=== PATIENT | female | born 1935 | race African-American/Black ===

== ENCOUNTER 2016-09-04 22:53 | Inpatient (IN) | payer OTHER ==
--- NOTE | ~2016-09-04 | HP ---
History And Physical [facility] [address] [place]. [address] NAME: ORQUIDEA MARQUEZ : 33 STATUS : ADM [place] PAT#: [id number] AGE: 81 ADM/REG DATE : 09/04/16 MR#: [id number] REPORT SERV DATE: 09/05/16 DICTATED BY: CIRILO RAMIREZ DATE: 09/05/16 REPORT STATUS : Draft TRANSCRIBED BY: MODL DATE: 09/05/16 DATE OF ADMISSION: 09/04/2016 CHIEF COMPLAINT: Abdominal pain, nausea, and vomiting. HISTORY OF PRESENT ILLNESS: This is an 81-year-old female who has a history of prior laparotomies, history of hypothyroidism, essential hypertension, and a hiatal hernia, who presents to the emergency room at [facility] with the above- mentioned complaint. History is obtained from Mrs. Marquez and her family, who is at bedside. Her data available on the [employer] system here was also reviewed. According to Mrs. Marquez, she had been in the usual state of health until two days ago when she started having abdominal pain. The pain was periumbilical and according to her radiated to the back. Her pain was sharp and continuous without any aggravating or relieving factors. This was also associated with nausea with vomiting although she says she vomited only one time today; however, her pain continued to worsen to the point she decided to come to the emergency room to be evaluated. In the emergency room, her pain was relieved with intravenous administration of narcotic, however, CT of the abdomen and pelvis showed abnormal mucosal thickening and mesenteric edema concerning for ischemia. She also had urinary tract infection and Hospitalist Service is asked to admit her for further evaluation and treatment. At the time of my evaluation, she denied any chest pain, palpitations, or orthopnea. She had no cough, hemoptysis, night sweats, or weight loss. She has not had any recent falls or loss of consciousness. No history of fevers, chills. She did have nausea and vomiting, but no history of diarrhea. No history of hematemesis, hematochezia, or hematuria. No other history of recent travel or exposures other than those mentioned above. PAST MEDICAL HISTORY: Significant for history of hypothyroidism, essential hypertension, history of small-bowel obstruction, gastroesophageal reflux disease, and hiatal hernia. SOCIAL HISTORY: She does not smoke, drink, or use recreational drugs. FAMILY HISTORY: Noncontributory. MEDICATIONS: At home were reviewed by me in the chart today and reordered by me. REVIEW OF SYSTEMS: As in history of present illness. All other systems were reviewed in detail and are quite unremarkable. PHYSICAL EXAMINATION: GENERAL: This is a pleasant 81-year-old, not in any acute distress. HEENT: Her head is atraumatic, normocephalic. She is alert, awake, oriented to time, place, and person. Her pupils are equal, reacting to light and accommodating. External History And Physical [address] [address] NAME: ORQUIDEA MARQUEZ : 33 STATUS : ADM [place] PAT#: [id number] AGE: 81 ADM/REG DATE : 09/04/16 MR#: [id number] REPORT SERV DATE: 09/05/16 DICTATED BY: CIRILO RAMIREZ DATE: 09/05/16 REPORT STATUS : Draft TRANSCRIBED BY: RYAN DATE: 09/05/16 ocular muscles are intact. Membranes are moist and pink. Sclerae are nonicteric. NECK: Supple with no jugular venous distention, lymphadenopathy, or thyromegaly. LUNGS: Clear to auscultation with no wheezes, rubs, or crackles. HEART: Heart sounds were regular with no murmurs, rubs, or gallops. ABDOMEN: Soft, nontender. Bowel sounds are present. EXTREMITIES: Showed no cyanosis, clubbing, or edema. NEUROLOGIC: Grossly intact. No focal sensory or motor deficits. She was able to move all four extremities. Higher functions were intact. VITAL SIGNS: Today showed a temperature of 97.6, pulse 105, respirations were 18 a minute, and blood pressure was 143/73, oxygen saturations were 96% breathing 2 L of oxygen via nasal cannula. LABORATORY DATA: Reviewed on the [employer] system showed a sodium of 141, potassium 4.1, chloride 109, CO2 of 27. BUN was 25 with a creatinine of 1.28 and this is about her baseline. Her blood glucose was 109. Her alkaline phosphatase was 134. Normal AST and ALT. Lipase was 152. Lactate was 0.9. CBC showed a white blood cell count of 12,700, otherwise normal hemoglobin, hematocrit, and platelet count. Urinalysis showed large leukocyte esterase, nitrite was positive with an 87 wbc's and moderate bacteria. Films of the CT scan of her abdomen and pelvis were reviewed by me on the PACS today and interpreted by me. Official radiology comments were also reviewed. Per Radiology, there is abnormal mucosal thickening and mesenteric edema concerning for ischemia. IMPRESSION: 1. Abdominal pain. 2. Nausea and vomiting. 3. Urinary tract infection. 4. Abnormal CT scan concerning for bowel ischemia. 5. Hypothyroidism. 6. Essential hypertension. PLAN: We will admit Mrs. Marquez to the Hospitalist Service with telemetry for a 24-hour observation. We will keep her n.p.o. for now. Establish pain control with intravenous Dilaudid on an as-needed basis and go ahead and consult Surgical Service to see her in the morning. ER physician had already spoken with Dr. Phillips who is aware of the abnormal CT scan as well. We will follow her closely and if needed we can place an NG tube to decompress her abdomen. Right now, she appears to be comfortable and has had only one episode of vomiting. Anyway, we will go ahead and get cultures and start her on empiric IV antibiotics for her urinary tract infection, provide intravenous Zofran and Phenergan for nausea and vomiting. We will also start her on IV fluids for volume resuscitation and place her on SCDs for DVT prophylaxis while here. Further recommendations will follow after Surgery has had a chance to evaluate her in the morning. Hospitalist Service will be following her during her stay here. MR/RYAN History And Physical [address] [address] NAME: ORQUIDEA MARQUEZ : 33 STATUS : ADM [place] PAT#: [id number] AGE: 81 ADM/REG DATE : 09/04/16 MR#: [id number] REPORT SERV DATE: 09/05/16 DICTATED BY: CIRILO RAMIREZ DATE: 09/05/16 REPORT STATUS : Draft TRANSCRIBED BY: RYAN DATE: 09/05/16 Cirilo Ramirez M.D. / [id number] CC: Naren Collado Jr, MD Raphael Lanade, M.D.
--- NOTE | ~2016-09-04 | CN ---
Consultation Report [facility] [address] [facility] [place]. [address] NAME: ORQUIDEA MARQUEZ : 33 STATUS : DIS IN PAT#: [id number] AGE: 81 ADM/REG DATE : 09/05/16 MR#: [id number] REPORT SERV DATE: 09/08/16 DICTATED BY: LINDA VICENTE DATE: 09/08/16 REPORT STATUS : Draft TRANSCRIBED BY: MODMaria Teresa DATE: 09/08/16 CONSULTATION DATE OF CONSULTATION: REASON FOR CONSULTATION: Ms. Nichols complaints of abdominal pain, nausea, and vomiting which are since resolved. HISTORY OF PRESENT ILLNESS: Ms. Nichols is a pleasant 81-year-old lady, who was admitted with complaints of pain in the abdomen, with nausea and vomiting for about two days duration. Currently, she feels better. She has no nausea or vomiting. She has still some pain in the epigastric region. The patient came to the ER, was evaluated and found to have on CT scan some mesenteric thickening. She had a small-bowel follow-through which appears to be normal, but show some dysmotility of the esophagus. Otherwise, she seems to be normal. Denies any nausea, or vomiting. Now denies any diarrhea. Denies any abdominal pain. She has some pain in the epigastric region and on swallowing. She has no fever. Evaluation in the ER showed that she had a urinary tract infection. PAST MEDICAL HISTORY: Significant for hypothyroidism, hypertension, history of small-bowel obstruction, gastroesophageal reflux disease, and hiatal hernia. SOCIAL HISTORY: She does not smoke. She does not take any alcohol. FAMILY HISTORY: History of hypertension and diabetes. CURRENT MEDICATIONS: On admission, dicyclomine 20 mg p.r.n., levothyroxine 125 mg p.o. daily, lisinopril 10 mg daily, Meloxicam 7.5 mg per day, pantoprazole 40 mg, triamterene hydrochlorothiazide 37.5/25 mg tablets, and 875 mg twice a day. PHYSICAL EXAMINATION: VITAL SIGNS: Her temperature is normal. Her BP is 150/70, peripheral pulses are well felt. NECK: Supple. Trachea is central. Carotids are well felt on both sides. CARDIOVASCULAR: S1 and S2 are heard. There is no S3. ABDOMEN: Soft. Bowel sounds are heard. Hernial orifices are normal. EXTREMITIES: Dorsalis pedis and posterior tibial are well felt on both sides NEUROLOGIC: Higher function cranial nerves and reflexes are normal. LABORATORY DATA: Shows the BUN, creatinine, and electrolytes to be normal. The glucose is 104, magnesium is 2.1. WBC count is 7.6, hemoglobin is 10.1, hematocrit is 32.3, and platelet count is 201. CT scan of the abdomen showed some thickening of the mesentery with stranding, otherwise was normal. A small bowel follow-through showed, normal small bowel follow-through, with hiatal hernia, and some dysmotility of the esophagus. IMPRESSION: Consultation Report [address] [place]. [address] NAME: ORQUIDEA MARQUEZ : 33 STATUS : DIS IN PAT#: [id number] AGE: 81 ADM/REG DATE : 09/05/16 MR#: [id number] REPORT SERV DATE: 09/08/16 DICTATED BY: LINDA VICENTE DATE: 09/08/16 REPORT STATUS : Draft TRANSCRIBED BY: MODL DATE: 09/08/16 1. Heartburn/epigastric pain, query gastritis. 2. Mild esophageal dysmotility or dyskinesia. 3. Admitted with nausea, vomiting, and slight thickening of the recently by CT, small- bowel follow-through normal, query enteritis which is resolved. 4. Hypertension. 5. Hypothyroidism. 6. Urinary tract infection. 7. Anemia. Could discharge the patient on pantoprazole 40 mg p.o. daily, amlodipine 5 mg p.o. at bedtime, Mylanta/Tums p.r.n. Weekly hemoccult blood test to be done. Follow up in GI clinic in two weeks time. JI/RYAN Linda Vicente M.D. / [id number] CC: MD Benson Fairchild M.D.
--- NOTE | ~2016-09-04 | DS ---
Discharge Summary [facility] [address] [place]. [address] NAME: ORQUIDEA MARQUEZ : 33 STATUS : DIS IN PAT#: [id number] AGE: 81 ADM/REG DATE : 09/05/16 MR#: [id number] REPORT SERV DATE: 09/09/16 DICTATED BY: MADISYN GARCIA DATE: 09/08/16 REPORT STATUS : Draft TRANSCRIBED BY: RYAN DATE: 09/08/16 ADMISSION DATE: 09/05/2016 DISCHARGE DATE: 09/08/2016 CONSULTATIONS: Gastroenterology, Dr. Forte. INVASIVE PROCEDURE: None. DISCHARGE DIAGNOSES: 1. Urinary tract infection. 2. Esophageal dysmotility. 3. History of Schatzki's ring. 4. Intractable nausea and vomiting. 5. Hypothyroidism. 6. Hypertension. DISCHARGE CONDITION: Stable. HISTORY OF PRESENT ILLNESS: For detailed HPI, please make reference to Dr. Cirilo Vela's dictation on 09/05/2016. In brief, this is an 81-year-old female with medical history of hypothyroidism, essential hypertension, hiatal hernia, history of Schatzki ring who presented to the hospital with complaints of abdominal pain, nausea, and vomiting. In the ER, vitals: Blood pressure 143/73, temperature 97.6, pulse 105 beats per minute, respiratory rate 18 cycles per minute, saturating 96% on 2 L of oxygen. Laboratory data shows a creatinine of 1.28, BUN 25, lactic acid 0.5, CBC showed a white cell count of 12,700. Urinalysis was positive for leukocyte esterase, nitrites. A CT of the abdomen was done in the ER that was also concerning for possible bowel ischemia. An assessment of urinary tract infection with intractable nausea and vomiting was made in the ER to rule out mesenteric ischemia. HOSPITAL COURSE: 1. Intractable nausea and vomiting. The patient was treated symptomatically with Zofran, was placed on IV fluid, was made n.p.o. General Surgery was consulted, recommended to have a GI follow-through study which shows the presence of an esophageal dysmotility without any evidence of bowel obstruction. A repeat lactic acid was done that shows the patient's lactic acid was essentially within normal limits. The patient reported significant improvement in abdominal pain. Nausea and vomiting completely resolved. Serial abdominal examination was performed that showed that the patient's abdomen continues to improve throughout the course of this admission. Prior to discharge, it was noted that the patient had no further evidence of abdominal pain. No nausea, vomiting, and less likely to have a mesenteric bowel ischemia. No mesenteric Doppler was done because the patient's symptoms had completely resolved prior to initiation of this study. 2. Esophageal dysmotility. The patient has extensive history of dysphagia with esophageal dysmotility, which may have been contributing to the patient's abdominal pain and discomfort. The patient's primary Gastroenterology was consulted and recommended the Discharge Summary [address] [place]. [address] NAME: ORQUIDEA MARQUEZ : 33 STATUS : DIS IN PAT#: [id number] AGE: 81 ADM/REG DATE : 09/05/16 MR#: [id number] REPORT SERV DATE: 09/09/16 DICTATED BY: MADISYN GARCIA DATE: 09/08/16 REPORT STATUS : Draft TRANSCRIBED BY: RYAN DATE: 09/08/16 patient to have a possible outpatient EGD versus esophageal dilatation. No further recommendation was prescribed at this time. The patient was advised to follow up with General surgery within two weeks of discharge. 3. Urinary tract infection. The patient was started on broad-spectrum IV antibiotics. Blood cultures came back negative. Urine culture was positive for E. coli sensitive to cephalosporin. The patient's IV ceftriaxone was discontinued and was transitioned to p.o. Ceftin. The patient was advised to complete a total of seven days therapy for urinary tract infection. IMAGIN. GI and small bowel study, impression:. a. Mild esophageal dysmotility. b. Small hiatal hernia. c. No abnormality of the stomach or small bowel was seen. 2. CT abdomen and pelvis on presentation, impression:. a. Abnormal small bowel pattern with mildly air and fluid distention although no dilated small bowel, measuring up to 2.8 cm diameter, scattered air-fluid levels in multiple segments of thickened small bowel, central and lower abdominal extending into the upper pelvis and infiltration of small bowel mesenteric. b. May represent an infectious/inflammatory or ischemic interictal pattern. No flank small-bowel obstruction pattern. c. Mild diverticulosis, distal, descending, and sigmoid colon. No acute diverticulitis present. 3. Status post cholecystectomy and hysterectomy. 4. Chronic multiple level degenerative disc disease, lower thoracic and lumbar spine. Replacement of the majority of the T12 and L1 vertebrae by benign vertebral body hemangioma. Chronic loss of height at T12 vertebra and chronic stable moderate focal stenosis at the T12 level of uncertain clinical significance. DISCHARGE MEDICATIONS: 1. Ceftin 250 mg p.o. daily. 2. Lisinopril 10 mg p.o. daily. 3. Norvasc 5 mg p.o. daily. 4. Protonix 40 mg p.o. daily. 5. Dicyclomine 20 mg p.o. t.i.d. p.r.n. 6. Welchol 625 mg two pills p.o. twice a day. 7. Maxzide 25 mg p.o. daily. DISCHARGE ACTIVITY: As tolerated. DISCHARGE FOLLOWUP: 1. Follow up with Gastroenterology within two weeks of discharge. 2. Follow up with primary care physician within one to two weeks of discharge. DISCHARGE DIET: Low-salt diet. Greater than 35 minutes was used to prepare this patient's discharge, reconcile medication, Discharge Summary [address] [address] NAME: ORQUIDEA MARQUEZ : 33 STATUS : DIS IN PAT#: [id number] AGE: 81 ADM/REG DATE : 09/05/16 MR#: [id number] REPORT SERV DATE: 09/09/16 DICTATED BY: MADISYN GARCIA DATE: 09/08/16 REPORT STATUS : Draft TRANSCRIBED BY: RYAN DATE: 09/08/16 and advised the patient on discharge plans and followup. DICTATED BY: MD FRANCY FairchildO/FERNANDOL Madisyn Garcia MD / [id number] CC: MD Benson Fairchild M.D. Jay Philippose, M.D.
--- NOTE | ~2016-09-04 | CN ---
Consultation Report [facility] [address] [place]. [address] NAME: ORQUIDEA MARQUEZ : 33 STATUS : ADM IN [facility]#: [id number] AGE: 81 ADM/REG DATE : 09/05/16 MR#: [id number] REPORT SERV DATE: 09/07/16 DICTATED BY: KY CARRENO DATE: 09/05/16 REPORT STATUS : Draft TRANSCRIBED BY: MODL DATE: 09/05/16 CONSULT NOTE TO GENERAL SURGERY SERVICE. DATE OF CONSULTATION: 09/05/2016 ATTENDING SURGEON: Ky Carreno M.D. RESIDENT: Dr. Oleg Jennings. REASON FOR CONSULT: CT scan findings and questionable bowel ischemia. HISTORY OF PRESENT ILLNESS: This is an 81-year-old female with 48 hours of nausea, vomiting, and abdominal pain. She says the pain is located to the left of her umbilicus with some radiation to her back. It is gradual in onset but worsened in severity which is why she presented to the hospital. She says it is similar but much less severe than her prior episode of abdominal pain that revealed a small bowel obstruction secondary to internal hernia many years ago. Denies any chest pain, shortness of breath, syncope, or dizziness. Has been having okay p.o. intake up until these events. Currently says her pain is improving. She has not had any fevers or chills. Her last bowel movement was yesterday. She had one episode of emesis prior to coming in to the hospital and has had none since. Of note, she does have a positive urinalysis but did not have any dysuria prior to arrival. PAST MEDICAL HISTORY: Hypothyroidism, hypertension, GERD, and hiatal hernia. PAST SURGICAL HISTORY: Exploratory laparotomy with lysis of adhesions and reduction of internal hernia. SOCIAL HISTORY: Denies any tobacco, alcohol, or illicit drug use. FAMILY HISTORY: Noncontributory. ALLERGIES: NO KNOWN DRUG ALLERGIES. HOME MEDICATIONS: Electronic medical record reconciliation reviewed. Please refer to that for full list. REVIEW OF SYSTEMS: Pertinent positives and negatives as above per the HPI. Full 12 system review of systems was completed with no additional findings. PHYSICAL EXAMINATION: VITAL SIGNS: Temperature 97.6, blood pressure 114/63, heart rate 71, respirations 16, and breathing 96% on room air. GENERAL: This is an adult black female, in no acute distress. She is alert oriented x3. CARDIOVASCULAR: Regular rate and rhythm. Consultation Report [facility] [address] [place]. [address] NAME: ORQUIDEA MARQUEZ : 33 STATUS : ADM IN PAT#: [id number] AGE: 81 ADM/REG DATE : 09/05/16 MR#: [id number] REPORT SERV DATE: 09/07/16 DICTATED BY: KY CARRENO DATE: 09/05/16 REPORT STATUS : Draft TRANSCRIBED BY: RYAN DATE: 09/05/16 PULMONARY: Clear to auscultation bilaterally. ABDOMINAL EXAM: Abdomen is soft, nondistended, mildly tender to palpation at the left mid abdomen. There is no rebound, no guarding. No peritonitis. There are no masses or hernias noted. IMAGING: CT scan of the abdomen and pelvis without contrast shows dilated loops of bowel in the left upper and left mid abdomen with some scant free fluid as well as wall thickening with some concern for ischemia. LABS: White count 9.6 down from 12.7, hematocrit 34, and platelets 218. Renal panel significant for creatinine of 1.19, otherwise within normal limits. Lactate was normal at 0.7. Again urinalysis positive. All LFTs were within normal limits. ASSESSMENT AND PLAN: An 81-year-old female with nausea, vomiting, and abdominal pain. 1. The patient is currently hemodynamically stable. Nontoxic appearing. Her symptoms seem to be improving. 2. Lactate was normal. White count is returned to normal. 3. We will check small-bowel followthrough to enter contrast passage through her dilated bowel especially given her prior history of bowel obstruction requiring exploratory laparotomy. 4. Continue n.p.o. for now. Continue IV fluid resuscitation, pending results of small bowel followthrough and we will follow along. DICTATED BY: MD ROBERT Cornell/RYAN Ky Carreno M.D. / [id number] CC: Iwayemi MD Benson Bray M.D.
[2016-09-04 21:48] LABS: BASOPHILS 0.2 %; BASOPHILS ABSOLUTE 0.03 10/3/uL (0.0-0.16); EOSINOPHILS 1.4 %; EOSINOPHILS ABSOLUTE 0.18 10/3/uL (0.0-0.53); HEMATOCRIT 38.6 % (36.0-48.0); HEMOGLOBIN 12.6 g/dL (12.0-16.0); IMMATURE GRANULOCYTES 0.4 %; IMMATURE GRANULOCYTES ABSOLUTE 0.05 10/3/uL (0.0-0.11); LYMPHOCYTES 19.4 %; LYMPHOCYTES ABSOLUTE 2.45 10/3/uL (0.67-4.30); MEAN CORPUS HGB CONC 32.6 g/dL (32.0-36.0); MEAN CORPUSCULAR HEMOGLOB 26.2 pg (26.0-34.0); MEAN CORPUSCULAR VOLUME 80.2 fL (80-100); MEAN PLATELET VOLUME 10.6 fL (9.2-13.0); MONOCYTES 5.3 %; MONOCYTES ABSOLUTE 0.67 10/3/uL (0.21-1.20); NEUTROPHILS 73.3 %; NEUTROPHILS ABSOLUTE 9.27 10/3/uL (2.02-8.40); PLATELET COUNT 246 10/3/uL (150-400); RBC DISTRIBUTION WIDTH 14.8 % (12.0-16.0); RED CELL COUNT 4.81 10/6/uL (4.0-5.6); WHITE BLOOD CELLS 12.7 10/3/uL (4.5-10.5)
[2016-09-04 21:50] LABS: MANUAL DIFF NO %
[2016-09-04 22:05] LABS: A/G RATIO 0.9 (0.7-1.9); ALBUMIN 3.4 G/DL (3.5-5.0); CALCIUM, SERUM 9.1 MG/DL (8.5-10.4); CHLORIDE, SERUM 109 MMOL/L (96-112); CO2 (CARBON DIOXIDE) 27 MMOL/L (24-34); CREATININE 1.28 MG/DL (0.55-1.02); GFR AFRICAN AMERICAN 45 ML/MIN (>=60); GFR NON AFRICAN AMERICAN 39 ML/MIN (>=60); GLUCOSE, SERUM 109 MG/DL (60-99); POTASSIUM, SERUM 4.1 MMOL/L (3.5-5.3); SGOT(AST) 12 U/L (5-40); SGPT(ALT) 16 U/L (5-65); SODIUM, SERUM 141 MMOL/L (135-148); TOTAL BILIRUBIN 0.8 MG/DL (0-1.2); TOTAL PROTEIN 7.4 G/DL (6.0-8.5)
[2016-09-04 22:06] LABS: ALKALINE PHOSPHATASE 134 U/L (45-117); BUN (BLOOD UREA NITROGEN) 25 MG/DL (6-23)
[2016-09-04 22:31] LABS: ASCORBIC ACID (UR NOT ORDER) NEG (NEG); BILIRUBIN, URINE NEGATIVE (NEG); ER URINALYSIS TAT 0 Hrs 12 Mins; KETONE, URINE NEGATIVE (NEG); LEUKOCYTE ESTERASE(NOT OR LARGE (NEG); NITRITE (URINE) POS (NEG); WBC (NOT ORDERED) (RFLEX) 87 (0-5)
[~2016-09-04 22:53] MED LIST: ACIPHEX PO; CIP5 PO; DYAZIDE1 CAP PO; FLAG500TAB PO; LEVOTHYROXIN150 MCG PO; MAX25 PO; MOBIC15 MG PO; NORCO1 TA1 PO; NORV5 PO; PR25 PO; PRILOSEC OTC20 MG PO; PROTONIX PO; ULTRAM50 PO; ZOCOR20 PO
[2016-09-04 23:51] LABS: INTERNATIONAL NORMAL RATI 1.1 UNITS (-); PARTIAL THROMBO TIME 30.2 SEC (22.5-37.2); PROTIME (NOT ORD) 13.8 SEC (12.0-14.5)
[2016-09-05 00:13] LABS: LACTATE 0.9 MMOL/L (0.3-2.4)
[2016-09-05] MEDS ORDERED: BENTYL20 PO (00:32)
[2016-09-05] MEDS ORDERED: MOBIC7.5 PO (00:32)
[2016-09-05] MEDS ORDERED: SYN125 PO (00:32)
[2016-09-05] MEDS ORDERED: PRIN10 PO (00:33)
[2016-09-05] MEDS ORDERED: WELCHOL 625 MG625 MG PO (00:33)
[2016-09-05] MEDS ORDERED: PROTONIX PO (00:33)
[2016-09-05] MEDS ORDERED: MAX25 PO (00:34)
[2016-09-05 05:37] LABS: BASOPHILS 0.3 %; BASOPHILS ABSOLUTE 0.03 10/3/uL (0.0-0.16); EOSINOPHILS 3.3 %; EOSINOPHILS ABSOLUTE 0.32 10/3/uL (0.0-0.53); IMMATURE GRANULOCYTES 0.4 %; IMMATURE GRANULOCYTES ABSOLUTE 0.04 10/3/uL (0.0-0.11); LYMPHOCYTES ABSOLUTE 2.58 10/3/uL (0.67-4.30); MEAN CORPUS HGB CONC 31.8 g/dL (32.0-36.0); MEAN CORPUSCULAR HEMOGLOB 25.6 pg (26.0-34.0); MEAN CORPUSCULAR VOLUME 80.7 fL (80-100); MEAN PLATELET VOLUME 10.4 fL (9.2-13.0); MONOCYTES ABSOLUTE 0.57 10/3/uL (0.21-1.20); NEUTROPHILS ABSOLUTE 6.02 10/3/uL (2.02-8.40); PLATELET COUNT 218 10/3/uL (150-400); RBC DISTRIBUTION WIDTH 14.9 % (12.0-16.0); RED CELL COUNT 4.29 10/6/uL (4.0-5.6); WHITE BLOOD CELLS 9.6 10/3/uL (4.5-10.5)
[2016-09-05 05:38] LABS: HEMATOCRIT 34.6 % (36.0-48.0); MANUAL DIFF NO %
[2016-09-05 06:01] LABS: A/G RATIO 0.8 (0.7-1.9); ALBUMIN 2.8 G/DL (3.5-5.0); BUN (BLOOD UREA NITROGEN) 22 MG/DL (6-23); CALCIUM, SERUM 8.4 MG/DL (8.5-10.4); CHLORIDE, SERUM 110 MMOL/L (96-112); CO2 (CARBON DIOXIDE) 27 MMOL/L (24-34); CREATININE 1.19 MG/DL (0.55-1.02); GFR AFRICAN AMERICAN 49 ML/MIN (>=60); GFR NON AFRICAN AMERICAN 42 ML/MIN (>=60); GLOBULIN 3.6 G/DL (2.5-4.1); GLUCOSE, SERUM 115 MG/DL (60-99); PHOSPHORUS, SERUM 3.2 MG/DL (2.5-4.5); POTASSIUM, SERUM 4.2 MMOL/L (3.5-5.3); SGOT(AST) 10 U/L (5-40); SGPT(ALT) 14 U/L (5-65); SODIUM, SERUM 143 MMOL/L (135-148); TOTAL BILIRUBIN 0.7 MG/DL (0-1.2); TOTAL PROTEIN 6.4 G/DL (6.0-8.5); ULTRASENSITIVE TSH 0.494 MCIU/ML (0.358-3.740)
[2016-09-05 06:03] LABS: ALKALINE PHOSPHATASE 115 U/L (45-117)
[2016-09-06 05:26] LABS: BASOPHILS 0.3 %; BASOPHILS ABSOLUTE 0.02 10/3/uL (0.0-0.16); EOSINOPHILS 6.3 %; EOSINOPHILS ABSOLUTE 0.44 10/3/uL (0.0-0.53); HEMATOCRIT 31.9 % (36.0-48.0); HEMOGLOBIN 10.2 g/dL (12.0-16.0); IMMATURE GRANULOCYTES 0.3 %; IMMATURE GRANULOCYTES ABSOLUTE 0.02 10/3/uL (0.0-0.11); LYMPHOCYTES 31.6 %; LYMPHOCYTES ABSOLUTE 2.21 10/3/uL (0.67-4.30); MEAN CORPUSCULAR VOLUME 81.4 fL (80-100); MEAN PLATELET VOLUME 10.5 fL (9.2-13.0); MONOCYTES 6.4 %; MONOCYTES ABSOLUTE 0.45 10/3/uL (0.21-1.20); NEUTROPHILS 55.1 %; NEUTROPHILS ABSOLUTE 3.86 10/3/uL (2.02-8.40); PLATELET COUNT 196 10/3/uL (150-400); RED CELL COUNT 3.92 10/6/uL (4.0-5.6)
[2016-09-06 05:29] LABS: MANUAL DIFF NO %
[2016-09-06 05:37] LABS: CALCIUM, SERUM 8.5 MG/DL (8.5-10.4); CHLORIDE, SERUM 110 MMOL/L (96-112); CO2 (CARBON DIOXIDE) 25 MMOL/L (24-34); CREATININE 0.95 MG/DL (0.55-1.02); GFR AFRICAN AMERICAN 64 ML/MIN (>=60); GFR NON AFRICAN AMERICAN 55 ML/MIN (>=60); GLUCOSE, SERUM 116 MG/DL (60-99); POTASSIUM, SERUM 3.8 MMOL/L (3.5-5.3); SODIUM, SERUM 143 MMOL/L (135-148)
[2016-09-06 05:38] LABS: BUN (BLOOD UREA NITROGEN) 13 MG/DL (6-23)
[2016-09-07 05:34] LABS: BASOPHILS 0.4 %; BASOPHILS ABSOLUTE 0.03 10/3/uL (0.0-0.16); EOSINOPHILS 5.8 %; EOSINOPHILS ABSOLUTE 0.44 10/3/uL (0.0-0.53); HEMATOCRIT 32.3 % (36.0-48.0); HEMOGLOBIN 10.1 g/dL (12.0-16.0); IMMATURE GRANULOCYTES 0.4 %; IMMATURE GRANULOCYTES ABSOLUTE 0.03 10/3/uL (0.0-0.11); LYMPHOCYTES 30.7 %; LYMPHOCYTES ABSOLUTE 2.33 10/3/uL (0.67-4.30); MEAN CORPUS HGB CONC 31.3 g/dL (32.0-36.0); MEAN CORPUSCULAR HEMOGLOB 25.6 pg (26.0-34.0); MEAN CORPUSCULAR VOLUME 81.8 fL (80-100); MEAN PLATELET VOLUME 10.5 fL (9.2-13.0); MONOCYTES 5.7 %; MONOCYTES ABSOLUTE 0.43 10/3/uL (0.21-1.20); NEUTROPHILS ABSOLUTE 4.33 10/3/uL (2.02-8.40); PLATELET COUNT 201 10/3/uL (150-400); RBC DISTRIBUTION WIDTH 14.8 % (12.0-16.0); RED CELL COUNT 3.95 10/6/uL (4.0-5.6); WHITE BLOOD CELLS 7.6 10/3/uL (4.5-10.5)
[2016-09-07 05:35] LABS: MANUAL DIFF NO %
[2016-09-07 05:49] LABS: BUN (BLOOD UREA NITROGEN) 11 MG/DL (6-23); CALCIUM, SERUM 8.7 MG/DL (8.5-10.4); CHLORIDE, SERUM 112 MMOL/L (96-112); CO2 (CARBON DIOXIDE) 26 MMOL/L (24-34); CREATININE 0.89 MG/DL (0.55-1.02); GFR AFRICAN AMERICAN 69 ML/MIN (>=60); GFR NON AFRICAN AMERICAN 60 ML/MIN (>=60); GLUCOSE, SERUM 104 MG/DL (60-99); POTASSIUM, SERUM 3.9 MMOL/L (3.5-5.3); SODIUM, SERUM 141 MMOL/L (135-148)
[2016-09-08] MEDS ORDERED: NORV5 PO (15:38)
[2016-09-08] MEDS ORDERED: CEFT2 PO (15:38)
== END 2016-09-08 17:10 | disposition home or self-care (01) | DRG 690 ==
LOC: ER 22:53 → 5NO 23:59
PROVIDERS: Emergency Medicine; Hospitalist; Internal Medicine Pulmonary Disease
DX: N39.0 Urinary tract infection, site not specified (principal); D64.9 Anemia, unspecified; I10 Essential (primary) hypertension; K22.4 Dyskinesia of esophagus; E03.9 Hypothyroidism, unspecified; K21.9 Gastro-esophageal reflux disease without esophagitis; B96.20 Unspecified Escherichia coli [E. coli] as the cause of diseases classified elsewhere
CPT/HCPCS: 74176; 74249; 74250; 80048; 80053; 81001; 82272; 83605; 83690; 83735; 84100; 84443; 85025; 85610; 85730; 87040; 87077; 87086; 87186; 96374; 99285; A9270-GY; J1170; J2405